=== PATIENT | male | born 1995 | race Two or more races ===

== ENCOUNTER 2025-04-20 20:56 | Emergency (ER) | payer OTHER, SELFPAY ==
[2025-04-20 21:36] VITALS: BMI 23.3
[2025-04-20 21:37] VITALS: BP 119/69
[2025-04-20] MEDS: SUBLIMAZE 80 MCG IV (21:44)
[2025-04-20 22:00] VITALS: BP 129/73
--- NOTE | 2025-04-20 22:18 | ED.GENMED ---
History of Present Illness
General
Chief Complaint: Musculo-Skeletal Complaint
Time Seen by Provider: 04/20/25 21:27
History of Present Illness
History of Present Illness:
30-year-old otherwise healthy male presents to the emergency department for evaluation of a suspected left shoulder dislocation that occurred while playing tennis. Had abrupt onset of pain and a deformity of the left arm after swinging the racquet.
Prior history of dislocation approximately 7 years ago no prior surgeries to the left shoulder
Review of Systems
Review of Systems
Allergies reviewed?: Yes
All Other Systems: ROS reviewed and negative except as documented in HPI and ROS
Phy Exam
Physical Exam
Physical Exam:
GEN: Well appearing, NAD, WDWN
HEENT: Oral mucosa moist, no scleral icterus
Cardiac: Regular rate
Lung: No respiratory distress, no tachypnea
MSK: Deltoid sulcus deformity compatible with anterior dislocation, sensation to the left axillary distribution and left radial pulse intact
Skin: Good color, no pallor or jaundice, no rashes
Neuro: AO x3, moves all extremities freely
Psych: Calm, cooperative
Course
Orders/Labs/Results
Orders:
Orders
04/20/25 20:58
CR Shoulder, Trauma - Left Urgent
Comment:
Reason For Exam: injurt, possible dislocation
04/20/25 21:37
Fentanyl Citrate/Pf [Sublimaze] 80 mcg IV NOW STA
04/20/25 21:51
CR Shoulder - Left 1 View Urgent
Comment:
Reason For Exam: post reduction
Vital Signs
Initial and Last Documented VS:
Initial Vital Signs
Temp Pulse Resp Pulse Ox
98.1 F 62 18 96
04/20/25 20:58 04/20/25 20:58 04/20/25 20:58 04/20/25 20:58
Last Documented Vital Signs
Temp Pulse Resp BP Pulse Ox
98.1 F 60 18 119/69 100
04/20/25 20:58 04/20/25 21:45 04/20/25 20:58 04/20/25 21:37 04/20/25 22:20
Procedures
Joint/Fracture Reduction
Left shoulder:
Indication for procedure:: Anterior inferior glenohumeral dislocation
Procedure completed by: Tenzin Gray PA-c
Consent form signed: No
Joint reduced: without anesthesia
Anesthesia/sedation: 1% Lidocaine and Injection to joint space
Injury was: closed
Further treatement: needs re-check only
Post reduction exam: stable
Capillary Refill: normal
Normal distal neurovascular exam?: Yes
MDM/Problems Addressed
MDM/Problems Addressed:
Shoulder reduced successfully at the bedside with intra-articular lidocaine and IV fentanyl for analgesia. Postreduction films show no evidence for bony deformity. Discussed supportive care and need for outpatient orthopedic follow-up
*Pulse Oximetry
SaO2: 100
Oxygen Mode of Delivery: Room air
Patient hypoxic: no
*Critical Care Note
Total Time (30-74mins, 75-104mins- exclusive of procedures): Not Applicable
ED Attending Note
-
Portions of this chart may have been created with voice recognition software.� Occasional wrong word or��sound alike� substitutions may have occurred due to the inherent limitations of voice recognition software.
Discharge Plan
Departure
Patient Disposition: Home (Routine Discharge)
Date of Disposition: 04/20/25
Time of Disposition: 22:18
Patient with high blood pressure during this ER visit?: No
Discharge Problem:
Anterior dislocation of left shoulder
Instructions: Shoulder Dislocation (DC)
Referrals:
Abdon Nowak MD [Active, Orthopedics]
Activity Restrictions/Additional Instructions:
Sling x 1 week (remove sling for 30 minutes per day to allow the elbow to stretch, however do not move the shoulder)
After 1 week, remove sling for longer periods throughout the day and perform pendulum swings with the arm. Do not raise above shoulder height or lift weights
Follow up with Orthopedics within 2 weeks for further re-evaluation
Interventions
Interventions:
*General Assessment Last Done: 04/20/25 21:48
*Neglect/Abuse Screening Last Done: 04/20/25 21:48
*ED- Fall Risk Assessment Last Done: 04/20/25 21:48
*ED COVID-19 Vaccine History Last Done: 04/20/25 21:48
ED-Musculoskeletal Assessment Last Done: 04/20/25 21:40
Discharge Date and Time
Print Language: [id number]
== END 2025-04-20 22:40 | disposition home or self-care (01) ==
LOC: EMR 20:56
PROVIDERS: EMERGENCY PHYSICIAN Emergency Medicine
DX: S43.015A Anterior dislocation of left humerus, initial encounter (principal); X50.1XXA Overexertion from prolonged static or awkward postures, initial encounter; Y93.73 Activity, racquet and hand sports
CPT/HCPCS: 99284; 23650; 73020; 73030